=== PATIENT | male | born 1955 | race Caucasian/White ===

== ENCOUNTER 2024-03-26 21:47 | Inpatient (IN) | payer OTHER, SELFPAY ==
[2024-03-26] VITALS (8 sets, daily range): BP systolic 162–193; BP diastolic 91–109; BMI 33.7
--- NOTE | 2024-03-26 16:05 | ED.GENMED ---
History of Present Illness
<Keyla Dow PA-C - Last Filed: 03/26/24 23:15>
General
Chief Complaint: DVT/Possible Blood Clot
Source: patient
Exam Limitations: none
Time Seen by Provider: 03/26/24 15:54
History of Present Illness
History of Present Illness:
69yoM with a history of hypertension, hyperlipidemia, anemia, and obesity presenting with his for evaluation of left calf pain. Symptoms began 4 days ago. He initially thought he might have sprained his leg. He reports increasing pain in his
calf throughout the past few days with swelling. He went to urgent care today and was referred to the ED for concern for a DVT. Patient also reports feeling short of breath over the past week. He denies any chest pain or syncope. No prior
history of VTE. He had a 4 [address] ride a few weeks ago but otherwise denies recent travel.
Phy Exam
<Keyla Dow PA-C - Last Filed: 03/26/24 23:15>
General Physical Exam
General Presentation: well appearing
General age: appears stated age
General Skin: warm and dry
General Mental: alert
ENT Exam
ENT Exam: normocephalic
Cardiovascular Exam
Cardiovascular Exam: regular rate/rhythm and no murmur
Pulmonary Exam
Pulmonary Exam: lungs clear, no respiratory distress, no rales, no crackles and no rhonchi
[place] Coma Scale
Eye Opening: Spontaneous
Verbal Response: Oriented
Motor Response: Obeys Commands
GCS Total Score: 15
Musculoskeletal Exam
Musculoskeletal Exam: other (L lower leg is visibly larger than R leg with 2+ pitting edema)
Skin Exam
Skin Exam: normal color and warm/dry
Psychiatric Exam
Psychiatric Exam: normal mood/affect
Course
<Keyla Dow PA-C - Last Filed: 03/26/24 23:15>
Orders/Labs/Results
Orders:
Orders
03/26/24 15:37
US Periph Venous LOWER Ext LT Urgent
Comment:
Reason For Exam: pain in calf, behind knee
03/26/24 16:05
Electrocardiogram (*1) Urgent
Reason for Study: Shortness of Breath
EKG- Treatment ONCE
03/26/24 16:33
Complete Blood Count/With Diff Urgent
D-Dimer Urgent
PTT Urgent
Prothrombin Time Urgent
03/26/24 17:14
CT Chest PE Study Urgent
Comment:
Reason For Exam: SOB, DVT
03/26/24 17:27
Heparin 5,000 units IV NOW STA
03/26/24 17:28
Comprehensive Metabolic Panel Routine
03/26/24 17:29
NT-proBNP Routine
Comment: ADDON
Troponin I Routine
03/26/24 17:32
Heparin 7,700 units IV NOW STA
Nursing to Place Non Medication Order As Directed
Physician Order: PTT 6 hours after initial start of Heparin infusion
Above order entered?: Yes
03/26/24 17:45
Heparin 85157 Units/250 ml 25,000 units in 250 ml IV PER PROTOCOL
Weight to be used for heparin protocol in kilograms (kg):: 96
Protocol:: DVT/PE
PTT Goal Range to be used:: PTT 73 to 111 seconds
Order type:: Initial
INITIAL Infusion Dose (UNITS/KG/hr) & then follow protocol:: 18 units/kg/hr
Infusion Dose in UNITS/hr & then follow protocol (UNITS/hr):: 1,700
INFUSION RATE in mL/hr & then follow protocol (mL/hr):: 17
For DVT/PE algorithm, re-bolus for low PTT?: Yes
PTT less than or equal to 64 seconds:: Re-bolus 80 units/kg (max 10,000units). Increase by 400 units/hr
(+ 4mL/hr)
PTT 64.1 to 72.9 seconds:: Re-bolus 40 units/kg (max 5,000 units). Increase by 200 units/hr
(+ 2mL/hr)
PTT 73 to 111 seconds:: Target Range. No change in rate.
PTT 111.1 to 130.9 seconds:: Decrease rate by 200 units/hr (- 2 mL/hr)
PTT 131 to 199.9 seconds:: HOLD for 1 hr. Then decrease by 300 units/hr (- 3mL/hr)
PTT greater than or equal to 200 seconds:: HOLD for 2 hrs & Notify Provider. Then decrease by 400 units/hr
(- 4mL/hr)
Lab follow-up:: Each change, PTT q6h until 2 consecutive are therapeutic. Then
PTT daily.
03/26/24 18:00
Heparin 7,700 units IV PRN PRN
03/26/24 18:01
Heparin 3,800 units IV PRN PRN
03/26/24 19:46
Add On- LAB Urgent
Tests Added?: BNP
03/26/24 21:25
Admit/Transfer Patient As Directed
Co-Sign Provider:
Level of Care: Inpatient admission
Assign to:: IMU- Intermediate Care
Physician / Group: hospitalist
Diagnosis: Pulmonary embolus
Reason for Hospitalization: Pulmonary embolus
Expected length of stay greater than two midnights?: Yes
ELOS- Estimated Length of Stay in days: 2
I certify the patient meets the requirements for IP care: Yes
PRN Pain Medication Management As Directed
May give lesser potent ordered pain med per pt: Yes
preference::
Protocol:: Medication orders for pain may be administered in a
manner that supports deferring to patient preference
when the pt is:
- Requesting an ordered lesser potent pain medication.
Least to most potent pain medications are defined
as: acetaminophen < NSAID < tramadol < opioids
(morphine, oxycodone, hydromorphone).
- Requesting a lesser dose of the same medication IF
ORDERED.
- Requesting a less intrusive route of administration
if both routes are prescribed by the provider (PO <
IV).
03/26/24 21:26
Code Status As Directed
Resuscitation Status: Full Code
03/27/24 00:10
PTT Urgent
Abnormal Lab Results
03/26/24 03/26/24
16:33 17:28
Abs Immat Gran (auto) 0.1 H 10^3/uL
(0-0.05)
Immature Gran % 0.8 H %
(0-0.5)
Lymphocytes % 17.7 L %
(20.5-51.1)
Eosinophils % 6.1 H %
(0-6)
APTT 22.7 L Sec
(23.4-35.0)
D-Dimer 9.24 H ug/mlFEU
(0.00-0.50)
Sodium 134 L mmol/L
(135-145)
Glucose 101 H mg/dl
(70-99)
03/26/24 16:33
03/26/24 17:28
Vital Signs
Initial and Last Documented VS:
Initial Vital Signs
Temp Pulse Resp BP Pulse Ox
98.5 F 83 16 193/100 97
03/26/24 15:32 03/26/24 15:32 03/26/24 15:32 03/26/24 15:32 03/26/24 15:32
Last Documented Vital Signs
Temp Pulse Resp BP Pulse Ox
98.5 F 87 14 177/100 95
03/26/24 15:32 03/26/24 22:45 03/26/24 22:45 03/26/24 22:00 03/26/24 22:45
<Ej Crockett, DO - Last Filed: 03/26/24 19:54>
Orders/Labs/Results
Orders:
Orders
03/26/24 15:37
US Periph Venous LOWER Ext LT Urgent
Comment:
Reason For Exam: pain in calf, behind knee
03/26/24 16:05
Electrocardiogram (*1) Urgent
Reason for Study: Shortness of Breath
EKG- Treatment ONCE
03/26/24 16:33
Complete Blood Count/With Diff Urgent
D-Dimer Urgent
PTT Urgent
Prothrombin Time Urgent
03/26/24 17:14
CT Chest PE Study Urgent
Comment:
Reason For Exam: SOB, DVT
03/26/24 17:27
Heparin 5,000 units IV NOW STA
03/26/24 17:28
Comprehensive Metabolic Panel Routine
03/26/24 17:29
NT-proBNP Routine
Comment: ADDON
Troponin I Routine
03/26/24 17:32
Heparin 7,700 units IV NOW STA
Nursing to Place Non Medication Order As Directed
Physician Order: PTT 6 hours after initial start of Heparin infusion
Above order entered?: Yes
03/26/24 17:45
Heparin 92445 Units/250 ml 25,000 units in 250 ml IV PER PROTOCOL
Weight to be used for heparin protocol in kilograms (kg):: 96
Protocol:: DVT/PE
PTT Goal Range to be used:: PTT 73 to 111 seconds
Order type:: Initial
INITIAL Infusion Dose (UNITS/KG/hr) & then follow protocol:: 18 units/kg/hr
Infusion Dose in UNITS/hr & then follow protocol (UNITS/hr):: 1,700
INFUSION RATE in mL/hr & then follow protocol (mL/hr):: 17
For DVT/PE algorithm, re-bolus for low PTT?: Yes
PTT less than or equal to 64 seconds:: Re-bolus 80 units/kg (max 10,000units). Increase by 400 units/hr
(+ 4mL/hr)
PTT 64.1 to 72.9 seconds:: Re-bolus 40 units/kg (max 5,000 units). Increase by 200 units/hr
(+ 2mL/hr)
PTT 73 to 111 seconds:: Target Range. No change in rate.
PTT 111.1 to 130.9 seconds:: Decrease rate by 200 units/hr (- 2 mL/hr)
PTT 131 to 199.9 seconds:: HOLD for 1 hr. Then decrease by 300 units/hr (- 3mL/hr)
PTT greater than or equal to 200 seconds:: HOLD for 2 hrs & Notify Provider. Then decrease by 400 units/hr
(- 4mL/hr)
Lab follow-up:: Each change, PTT q6h until 2 consecutive are therapeutic. Then
PTT daily.
03/26/24 18:00
Heparin 7,700 units IV PRN PRN
03/26/24 18:01
Heparin 3,800 units IV PRN PRN
03/26/24 19:46
Add On- LAB Urgent
Tests Added?: BNP
03/26/24 21:25
Admit/Transfer Patient As Directed
Co-Sign Provider:
Level of Care: Inpatient admission
Assign to:: IMU- Intermediate Care
Physician / Group: hospitalist
Diagnosis: Pulmonary embolus
Reason for Hospitalization: Pulmonary embolus
Expected length of stay greater than two midnights?: Yes
ELOS- Estimated Length of Stay in days: 2
I certify the patient meets the requirements for IP care: Yes
PRN Pain Medication Management As Directed
May give lesser potent ordered pain med per pt: Yes
preference::
Protocol:: Medication orders for pain may be administered in a
manner that supports deferring to patient preference
when the pt is:
- Requesting an ordered lesser potent pain medication.
Least to most potent pain medications are defined
as: acetaminophen < NSAID < tramadol < opioids
(morphine, oxycodone, hydromorphone).
- Requesting a lesser dose of the same medication IF
ORDERED.
- Requesting a less intrusive route of administration
if both routes are prescribed by the provider (PO <
IV).
03/26/24 21:26
Code Status As Directed
Resuscitation Status: Full Code
03/27/24 00:10
PTT Urgent
Abnormal Lab Results
03/26/24 03/26/24
16:33 17:28
Abs Immat Gran (auto) 0.1 H 10^3/uL
(0-0.05)
Immature Gran % 0.8 H %
(0-0.5)
Lymphocytes % 17.7 L %
(20.5-51.1)
Eosinophils % 6.1 H %
(0-6)
APTT 22.7 L Sec
(23.4-35.0)
D-Dimer 9.24 H ug/mlFEU
(0.00-0.50)
Sodium 134 L mmol/L
(135-145)
Glucose 101 H mg/dl
(70-99)
03/26/24 16:33
03/26/24 17:28
Vital Signs
Initial and Last Documented VS:
Initial Vital Signs
Temp Pulse Resp BP Pulse Ox
98.5 F 83 16 193/100 97
03/26/24 15:32 03/26/24 15:32 03/26/24 15:32 03/26/24 15:32 03/26/24 15:32
Last Documented Vital Signs
Temp Pulse Resp BP Pulse Ox
98.5 F 87 14 177/100 95
03/26/24 15:32 03/26/24 22:45 03/26/24 22:45 03/26/24 22:00 03/26/24 22:45
<Keyla Dow PA-C - Last Filed: 03/26/24 23:15>
MDM/Problems Addressed
Differential Diagnosis Includes:
69yoM here with L calf pain x 4 days. Sent here from urgent care for concern for DVT. Also reports SOB. No chest pain or syncope. He is hypertensive with otherwise normal vitals. There is pitting edema on exam. Differential diagnosis includes but is
not limited to: DVT, Burkett's cyst, dependent edema, PE
Initial ED plan: Check cardiac labs, D-dimer, EKG, and venous duplex.
Final assessment: Venous duplex shows large DVT extending from proximal femoral vein to popliteal vein. High suspicion for PE. CTA chest ordered and patient empirically started on heparin gtt. CT shows saddle pulmonary embolus. No imaging evidence
of heart strain and troponin/BNP normal. Critical care and IR notified. No indication for intervention. Patient remains hemodynamically stable on room air. He was admitted for further management.
<Keyla Dow PA-C - Last Filed: 03/26/24 23:15>
*EKG
Interpreted by ED Provider?: Yes
EKG Intrepretation Date: 03/26/24
Heart Rate: 76
Rate: normal
Rhythm: sinus
Emily: normal axis
Interval: normal interval
QRS Pattern: normal QRS
Ischemia: no ischemia
<Ej Crockett DO - Last Filed: 03/26/24 19:54>
*Radiology
Radiology exam reviewed: radiology read reviewed
*Pulse Oximetry
Patient hypoxic: no
*Critical Care Note
Total Time (30-74mins, 75-104mins- exclusive of procedures): 31
<Ej Crockett DO - Last Filed: 03/26/24 19:54>
Update Note
Update Note:
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
ED Attending Note
<Keyla Dow PA-C - Last Filed: 03/26/24 23:15>
-
Portions of this chart may have been created with voice recognition software.� Occasional wrong word or��sound alike� substitutions may have occurred due to the inherent limitations of voice recognition software.
<Ej Crockett DO - Last Filed: 03/26/24 19:54>
ED Attending Note
Patient seen and examined by attending physician: Yes
I performed the substantive portion of visit, reviewed & personally made and approve the management plan that is documented in note by myself or SKYE.: Yes
ED Attending Note:
Seen with PA examined independently history of anemia several years ago had upper endoscopy showed gastritis, feels short of breath like when he was anemic has been taking some iron, had a 4-hour car trip to [place] a week or 2 ago here is a
swollen leg short of breath fairly extensive DVT, high index suspicion for PE started on unfractionated heparin will send for CT scan
Discharge Plan
Departure
Patient Disposition: Admit
Date of Disposition: 03/26/24
Time of Disposition: 19:58
Presentation/result/management discussed w/ accepting MD/DO: Hospitalist
Discharge Problem:
Acute saddle pulmonary embolism, Deep vein thrombosis (DVT) of proximal vein of left lower extremity
Interventions
Interventions:
*Risk Screen - Suicide Last Done: 03/26/24 15:32
*General Assessment Last Done: 03/26/24 15:32
*Neglect/Abuse Screening Last Done: 03/26/24 19:15
ED- Fall Risk Assessment Last Done: 03/26/24 19:15
*ED COVID-19 Vaccine History Last Done: 03/26/24 15:32
ED- Cardiac Assessment Last Done: 03/26/24 17:49
ED- Pulmonary Assessment Last Done: 03/26/24 17:49
ED-Peripheral Vascular Assessment Last Done: 03/26/24 17:49
ED-Skin Assessment Last Done: 03/26/24 17:49
[2024-03-26 16:46] LABS: % Basophils 0.5 % (0-2); % Eosinophils 6.1 % (0-6); % Immature Granulocytes 0.8 % (0-0.5); % Lymphocytes 17.7 % (20.5-51.1); % Monocytes 7.4 % (1.7-9.3); % Neutrophils 67.5 % (42.2-75.2); Absolute Eosinophils 0.5 10^3/uL (0-0.7); Absolute Immature Granulocytes 0.1 10^3/uL (0-0.05); Absolute Lymphocytes 1.3 10^3/uL (1.2-3.4); Absolute Monocytes 0.6 10^3/uL (0.1-0.6); Hematocrit 44.1 % (39.0-52.0); Hemoglobin 15.3 g/dL (13.0-18.0); Mean Corp Hgb Conc. 34.7 g/dL (33.0-37.0); Mean Corpuscular Hgb 30.8 pg (27.0-31.0); Mean Corpuscular Volume 88.9 fL (80.0-94.0); Mean Platelet Volume 10.4 fL (7.4-10.4); Nucleated Red Blood Cells % 0 % (-); Platelet Count 198 10^3/uL (130-400); Red Blood Cell Count 4.96 10^6/uL (4.70-6.10); Red Cell Dist. Width 13.5 % (11.5-14.5); White Blood Cell Count 7.4 10^3/uL (4.8-10.8)
[2024-03-26 17:42] LABS: INR 0.94; PT 12.9 Sec (11.4-14.6)
[2024-03-26 17:43] LABS: APTT 22.7 Sec (23.4-35.0)
[2024-03-26 17:58] LABS: ALT (SGPT) 19 U/L (0-50); AST (SGOT) 24 U/L (17-59); Albumin 4.8 g/dl (3.5-5.0); Alkaline Phosphatase 89 U/L (38-126); Blood Urea Nitrogen 17 mg/dl (9-20); Carbon Dioxide 25 mmol/L (22-30); Chloride 103 mmol/L (98-107); Estimated Creatinine Clearance 98 ml/min; Glucose 101 mg/dl (70-99); Potassium 4.3 mmol/L (3.5-5.1); Sodium 134 mmol/L (135-145); Total Bilirubin 0.8 mg/dl (0.2-1.3); Total Protein 7.6 g/dl (6.3-8.2); eGFR > 60.00
[2024-03-26 18:09] LABS: Troponin I < 0.012 ng/ml
[2024-03-26] MEDS: HEPARIN 25000 UNITS/250 ML IV (18:10)
[2024-03-26] MEDS: HEPARIN 7700 UNITS IV (18:13)
[2024-03-26 18:15] LABS: D-Dimer 9.24 ug/mlFEU (0.00-0.50)
[2024-03-26 21:00] LABS: NT-proBNP 108 pg/ml
--- NOTE | 2024-03-26 21:17 | HPS.HSE ---
Family Physician
-
Family Physician: Justine Collado
Chief Complaint
-
Shortness of breath and left leg swelling and pain
History of Present Illness
This is a 69-year-old with past medical history significant for hypertension, hyperlipidemia presenting to the emergency department with approximately 1 week history of leg swelling and shortness of breath.
Patient reported suddenly developed left leg pain on Friday. He reports the pain is localized to the calf and behind the knee. It was associated with some swelling. Soon afterward she started having some breathing difficulties. He reports
dyspnea on exertion with minimal activity such as putting on his clothes. He denies having any chest pain. Denies feeling lightheaded or dizzy. Patient ultimately saw urgent care who felt like he most likely had a DVT.
Patient himself reports that he had a 4-hour drive back and forth a few weeks ago. He denies any other prolonged immobilization. He had no recent surgeries. He had no recent hospitalization. Patient denies any recent injuries. He states he is
more sedentary due to his senior care. He denies any family history of bleeding or clotting disorders. Patient reports recent colonoscopy in 2018 with follow-up in 10 years. Is tobacco smoker but quit 35 years ago. He denies any diagnosis of BPH.
In the emergency department he was afebrile, blood pressure was 160/100 with a pulse of 85. His troponin was negative. BNP was negative. ECG was nonischemic. CBC was unremarkable. Electrolytes BUN/creatinine were all within the normal range.
He had a CT PE study which showed a saddle embolus. There was no or RV strain. Peripheral ultrasound is positive for DVT in the left leg.
Medical History
Past Medical History
Past Medical History: Reports GERD, HTN and Hypercholesterolemia
Additional Past Medical History:
h/o COCO
Past Surgical History: Reports Other
Social History
Tobacco: Former Smoker
Alcohol: Occasional
Drug: None
Personal:
Living: With Family
Employment: Retired
Family History
Family History: CAD
Allergies / Home Medications
Allergies reflects when Allergies were last updated in [employer].
Home Medications with original date entered in [employer]
Allergy/Medication List:
Allergies
Allergy/AdvReac Type Severity Reaction Status Date / Time
No Known Allergies Allergy Verified 03/26/24 15:35
Home Medications
aspirin 81 mg tablet,delayed release 81 mg PO DAILY 03/26/24
ferrous sulfate 325 mg (65 mg iron) tablet 325 mg PO DAILY 03/26/24
ibuprofen 200 mg tablet (Advil) 200 mg PO Q6HPRN PRN mild pain 03/26/24
latanoprost 0.005 % eye drops 1 drp BOTH EYES HS 03/26/24
rosuvastatin 40 mg tablet (Crestor) 40 mg PO DAILY 03/26/24
Review of Systems
-
History Source: Patient
Constitutional: Reports No Symptoms
EENT: Reports No Symptoms
Respiratory: Reports Trouble Breathing
Cardiac: Reports No Symptoms
Abdomen/GI: Reports No Symptoms
: Reports No Symptoms
Musculoskeletal: Reports No Symptoms
Skin: Reports No Symptoms
Neurological: Reports No Symptoms
Endocrine: Reports No Symptoms
Hematologic/Lymphatic: Reports No Symptoms
Psych: Reports No Symptoms
Physical Exam
Vital Signs
Vital Signs
Temp Pulse Resp BP Pulse Ox
98.5 F 85 18 163/109 94
03/26/24 15:32 03/26/24 19:00 03/26/24 19:15 03/26/24 19:00 03/26/24 19:00
Physical Exam
General: Well Developed, Well Nourished, Comfortable and Conversant
HEENT: NormoCephalic, Anicteric, Moist mucous membranes and Atraumatic
Respiratory: Clear
Cardiac: S1/S2 and Regular Rhythm
Breast: Deferred by me
GI: Soft, Non Tender, Non Distended and Normal Bowel Sounds
Rectal: Deferred by Provider
Genito-urinary: Deferred by me
Musculoskeletal: No Clubbing, No Cyanosis and No Edema
Skin: Warm
Neuro: AO x 3 and Nonfocal/grossly intact
Psych: Calm
Laboratory Results
-
03/26/24 16:33
03/26/24 17:28
Laboratory Results
PT 12.9 Sec (11.4-14.6) 03/26/24 16:33
INR 0.94 03/26/24 16:33
APTT Cancelled 03/26/24 17:32
Total Bilirubin 0.8 mg/dl (0.2-1.3) 03/26/24 17:28
AST 24 U/L (17-59) 03/26/24 17:28
ALT 19 U/L (0-50) 03/26/24 17:28
Alkaline Phosphatase 89 U/L (38-126) 03/26/24 17:28
Troponin I < 0.012 ng/ml 03/26/24 17:29
Data Reviewed
-
CT Scan: Report Reviewed by me
Ultrasound: Report Reviewed by me
Medical Tests (Nuc Med, Echo, EKG etc): Image Personally Visualized and interpreted
Lab Data: Labs Reviewed by me and Discussed with Physician
Old Records: Reviewed
Impression/Plan
-
IMPRESSION:
69 y.o with acute non-provoked DVT and PE with saddle embolus.
PLAN:
Venous thromboembolism with PE and DVT - No clear history of provoked emboli. No known family history of DVT/PE. Saddle embolus. Normal oxygen. HD stable. Normal troponin. No RV strain. No signs of severe compromise at this time.
- admit to IMU
- started on heparin gtt
- IR aware and notified, no indication for acute procedure
- intensivisit aware
- maintain heparin gtt for at least 24 hours
- transition per pulm
- outpatient hypercoagulable w/u recommended
- hold aspirin
- PPI prophylaxis
Code status - full code
[2024-03-27] VITALS (17 sets, daily range): BP systolic 141–171; BP diastolic 78–99; BMI 34.4; BMI 33.7
[2024-03-27 00:48] LABS: COVID-19 Antigen Negative (Negative)
[2024-03-27 00:49] LABS: APTT 73.6 Sec (23.4-35.0)
--- NOTE | 2024-03-27 00:52 | EDRN ---
pTT 73.6. As per protocol this is target range and requires no bolus or change in rate.
[2024-03-27 06:39] LABS: APTT 85.9 Sec (23.4-35.0)
[2024-03-27 06:59] LABS: ALT (SGPT) 19 U/L (0-50); AST (SGOT) 31 U/L (17-59); Albumin 4.5 g/dl (3.5-5.0); Alkaline Phosphatase 81 U/L (38-126); Blood Urea Nitrogen 15 mg/dl (9-20); Calcium 9.1 mg/dl (8.4-10.2); Carbon Dioxide 21 mmol/L (22-30); Chloride 107 mmol/L (98-107); Estimated Creatinine Clearance 98 ml/min; Glucose 106 mg/dl (70-99); HDL Cholesterol 48 mg/dl; LDL Cholesterol, Calculated 112 mg/dl; Potassium 4.4 mmol/L (3.5-5.1); Sodium 140 mmol/L (135-145); Total Bilirubin 0.9 mg/dl (0.2-1.3); Total Cholesterol 183 mg/dl (50-199); Total Protein 7.5 g/dl (6.3-8.2); Triglyceride 118 mg/dl (10-149); Very Low Density Lipoprotein 23 mg/dl (0-30); eGFR > 60.00
--- NOTE | 2024-03-27 07:00 | EDRN ---
the pts PTT came back at 0700 at 85.9, per Heparin gtt protocol there is no change to gtt so the pts Heparin gtt will remain at 1700units/hour, this was verified with another RN, next PTT 12:52
--- NOTE | 2024-03-27 08:00 | EDRN ---
the pt was received from previous shift mechanic nurse Felicia ESQUIVEL, the pt is resting in stretcher in the lowest position, side rails up x2, call mosher within reach, HOB elevated, no s/s of distress, no c/o chest pain, no c/o SOB, the pts is currently
at the pts bedside, the pt is on RA Sp02 98%, the pt was provided a menu and the pt was able to order his breakfast, Heparin gtt currently still running at 1700units/hour, the pts and the pts were update on the plan of care, will continue to
monitor the pt closely
[2024-03-27] MEDS: PROTONIX 40 MG PO (08:19)
[2024-03-27] MEDS: CRESTOR 40 MG PO (08:19)
[2024-03-27] MEDS: FEOSOL 325 MG PO (08:20)
[2024-03-27] MEDS: MIRALAX PO (08:20)
[2024-03-27] MEDS: HEPARIN 25000 UNITS/250 ML IV ×2 (08:30→22:51)
--- NOTE | 2024-03-27 10:36 | EDRN ---
the pts breakfast arrived and this RN brought the pt his breakfast and set him up in the stretcher with bedside table within reach
[2024-03-27 12:31] LABS: Glycohemoglobin (HgbA1c) 5.3 % (4.0-5.6)
--- NOTE | 2024-03-27 12:38 | EDRN ---
PTT drawn and sent
--- NOTE | 2024-03-27 12:43 | EDRN ---
the pt is resting in stretcher in the lowest position, side rails up x2, call mosher within reach, HOB elevated, no s/s of distress, VS WNL, no c/o chest pain, no c/o SOB, the pts is currently still at the pts bedside, the pt ordered his lunch,
the pt denies needing anything at this time, will continue to monitor the pt closely
[2024-03-27 12:55] LABS: APTT 58.1 Sec (23.4-35.0)
[2024-03-27] MEDS: HEPARIN 7700 UNITS IV (13:13)
--- NOTE | 2024-03-27 14:58 | EDRN ---
the pt ambulated to the bathroom and when the pt got back to the stretcher he pressed the call mosher and this RN entered the pts room, the pt stated that he had left sided chest pain that is non radiating, this RN reached out to Dr. Hawkins who
ordered an EKG on the pt
--- NOTE | 2024-03-27 15:02 | CON.PUL ---
Consultation
Consultation Request
Date/Time Consultation Requested: 03/27
Date/Time Consultation Performed: 03/27
Reason for Consultation: Pulmonary embolism
Medical History
-
History of Present Illness:
History obtained from the patient and at the bedside. Patient is a pleasant 69-year-old male with hypertension, GERD, anemia who presents with leg pain approximately 5 days ago with some swelling. Patient also admitted feeling short of breath
dressing, putting on his clothes. He had some mild lightheadedness on further questioning but denies any palpitations, chest tightness. Denies any syncope or falls. Of note he did have a 4-hour drive to [facility] few weeks ago. Denies
any trauma. He brought himself into [facility], upon arrival afebrile, pulse 85, breathing at 18, blood pressure 160s over 100s, 94%. Workup revealed extensive thromboembolic disease per CT angiogram. Patient was started on heparin
therapy. We are asked to help from pulmonary standpoint
.
PMH: hypertension, hyperlipidemia, GERD, iron deficiency anemia
Past Medical History
Past Medical History: None (See above)
Past Surgical History: None (See above)
Social History
Tobacco: Former Smoker ([id number], quit )
Alcohol: Occasional
Drug: None
Personal:
Living: With Family
Employment: Retired
Family History
Family History: Other (History of coronary disease. There is no history of thromboembolic disease)
Allergies / Home Medications
Allergies
Allergy/AdvReac Type Severity Reaction Status Date / Time
No Known Allergies Allergy Verified 03/26/24 15:35
Home Medications
�Medication �Instructions �Recorded �Confirmed �Last Taken �Type
aspirin 81 mg tablet,delayed 81 mg PO DAILY 03/26/24 03/26/24 Unknown History
release
ferrous sulfate 325 mg (65 mg 325 mg PO DAILY 03/26/24 03/26/24 Unknown History
iron) tablet
ibuprofen 200 mg tablet (Advil) 200 mg PO Q6HPRN PRN mild pain 03/26/24 03/26/24 03/26/24 History
latanoprost 0.005 % eye drops 1 drp BOTH EYES HS 03/26/24 03/26/24 Unknown History
rosuvastatin 40 mg tablet (Crestor) 40 mg PO DAILY 03/26/24 03/26/24 Unknown History
Review of Systems
Vitals / Labs / Diagnostic Testing
Vital Signs
Temp Pulse Resp BP Pulse Ox
97.6 F 70 18 150/85 93
03/27/24 12:00 03/27/24 14:45 03/27/24 14:45 03/27/24 14:00 03/27/24 14:45
Lab Data
03/26/24 16:33
03/27/24 06:16
Laboratory Results
03/26/24 03/26/24 03/27/24
16:33 17:32 00:16
PT 12.9
INR 0.94
APTT 22.7 L Cancelled 73.6 H
03/27/24 03/27/24
06:16 12:30
PT
INR
APTT 85.9 H 58.1 H
Diagnostic Testing:
Physical Exam
-
HEENT: Normocephalic, Anicteric and Other (Large neck)
Cardiovascular: S1/S2, Regular Rhythm, Murmur (n), Rub (n), Peripheral Edema (Trace edema left lower extremity) and Calf Tenderness (n)
Respiratory: Wheeze (n), Rales (n), Rhonchi (n) and Non-Labored Respirations
GI: Soft, Non Distended and Non Tender
Neurology: Awake, Alert, Oriented and No Motor Deficits
Skin: Good Color and Other (No skin rash)
General: Comfortable
Assessment
-
69-year-old male with history of hypertension, recent travel, presents with 5 days of increased left leg pain, subjective dyspnea and questionable lightheadedness. Found to have saddle embolus with extensive clot in the left leg. Heparin therapy
was started. We are asked to comment on pulmonary process
Acute bilateral PE, saddle embolus
Extensive left lower extremity DVT
Elevated D-dimer
No evidence of RV strain, cardiac biomarkers negative
COVID-negative
Subjective dyspnea x 5 days
Left leg swelling x 5 days
Hypertension/hyperlipidemia
GERD, large hiatal hernia per imaging
Suspected sleep apnea
Plan/recommendations
At this time, patient appears to be stable
Reviewed at length pathophysiology of thromboembolic disease
No indication for lytic therapy at this time
For now continue with heparin therapy
Would maintain bedrest for 24 hours
Discussed importance of age-appropriate cancer screening. Patient had colonoscopy 7 years ago unremarkable
Distant tobacco history noted
There does not appear to be any parenchymal abnormality per CT imaging
Reviewed with patient, at bedside
Reviewed with ED staff 03/25 1 in the PM and primary service
Will follow
--- NOTE | 2024-03-27 16:08 | CM ---
CM met with pt and spouse/Kimberlee bedside
They resides in a 2Sh with 1 small threshold
13 steps to 2nd floor
Pt is independent with his ADLs
Denies use of DMEs
Denies financial insecurities
PCP- Justine Collado
Rx- Lazaro/Fran
Discharge Disposition- anticipate home no needs
--- NOTE | 2024-03-27 17:19 | EDRN ---
the pt is resting in stretcher in the lowest position, side rails up x2, call mosher within reach, HOB elevated, no s/s of distress, VS WNL, no c/o chest pain currently, no c/o SOB, the pt is currently 93% on RA, the pt denies needing anything at this
time, the pt ordered dinner, will continue to monitor the pt closely
--- NOTE | 2024-03-27 17:32 | EDRN ---
this RN called verbal report to the receiving IMU nurse Pedro Luis ESQUIVEL, this RN also tubed nursing profile report to the receiving unit
[2024-03-27 20:27] LABS: APTT 192.5 Sec (23.4-35.0)
--- NOTE | 2024-03-27 21:53 | PTCARENOTE ---
Rec'd pt from ED, AAOx3, denies new complaints. Continues with mild LLE pain behind the knee. VSS, BP slightly elevated at 166/99, but consistent with pressures in ED. Pt educated on condition, oriented to room and call mosher system. Heparin gtt
hanging per MD orders. PTT critical high, protocol followed, REDDY Shields notified via TT. See worklist for titrations. This RN will continue to follow PTT per protocol. Pt encouraged to alert this RN with questions or concerns, denies either at this
time. Call mosher within reach. Spouse remains at bedside. Care ongoing.
[2024-03-27] MEDS: XALATAN OPHTHALMIC SOLUTION 1 DROP BOTH EYES (23:44)
[2024-03-28] VITALS (11 sets, daily range): BP systolic 124–155; BP diastolic 73–96
--- NOTE | 2024-03-28 00:36 | PTCARENOTE ---
SaO2 dropped several times, as low as 85% while sleeping. Denies diagnosis of sleep apnea. This RN placed 2L NC.
[2024-03-28 04:29] LABS: Hematocrit 40.5 % (39.0-52.0); Hemoglobin 13.6 g/dL (13.0-18.0); Mean Corp Hgb Conc. 33.6 g/dL (33.0-37.0); Mean Corpuscular Hgb 30.5 pg (27.0-31.0); Mean Corpuscular Volume 90.8 fL (80.0-94.0); Mean Platelet Volume 10.1 fL (7.4-10.4); Platelet Count 161 10^3/uL (130-400); Red Blood Cell Count 4.46 10^6/uL (4.70-6.10); Red Cell Dist. Width 13.2 % (11.5-14.5); White Blood Cell Count 6.4 10^3/uL (4.8-10.8)
--- NOTE | 2024-03-28 05:19 | PTCARENOTE ---
Pt removes O2 frequently to 'clean his nose', drops to 75%. Pt has to be reminded to replace O2 cannula often. Does recover to 90s once cannula replaced.
[2024-03-28] MEDS: PROTONIX 40 MG PO (08:10)
[2024-03-28] MEDS: FEOSOL 325 MG PO (08:10)
[2024-03-28] MEDS: CRESTOR 40 MG PO (08:10)
[2024-03-28] MEDS: MIRALAX 17 GRAMS PO (08:11)
--- NOTE | 2024-03-28 10:46 | CM ---
Chart reviewed and field nurse case manager met with patient and spouse at bedside, field nurse case manager received a consult to check on Eliquis pricing, cost of Eliquis is $145.61 per month, patient and spouse made aware of cost and one month free coupon provided to
patient, cardiology updated.
Plan; Home with spouse when stable, no needs.
--- NOTE | 2024-03-28 11:14 | W.PN.HOSP.TC ---
Today's Communication/Plan
-
Assessment / Plan
Assessment / Plan
Gen-AAOx3, NAD
HEENT-NC, AT, anicteric, clear oral mm
Neck-supple
CV-reg, no M, +S1/S2
Lungs-clear B/L
Abd-soft, NT, ND
Musculoskeletal-no edema, no deformity
Skin-warm and dry
Neuro-grossly non-focal
Psych-calm, cooperative
Mr. Rangel is a 69-year-old male with a medical history of hypertension and hyperlipidemia who presented with left leg swelling and shortness of breath progressively worsening over the past 1 week prior to arrival. CT angiography of his chest
showed saddle embolus. Ultrasound showed large left lower extremity DVT extending from the proximal left femoral vein through the posterior tibial vein. He has been started on anticoagulation with IV heparin drip and admitted for further
evaluation and management.
Acute saddle embolus:
-Suspect secondary to dislodged left lower extremity DVT following recent [place]
-Ultrasound showed large left lower extremity DVT extending from the proximal left femoral vein through the posterior tibial vein
-No evidence for significant right heart strain on CT angiography, echocardiogram pending for further evaluation
-Continue bedrest for now, anticoagulation with IV heparin drip
Hyperlipidemia:
-Continue home statin therapy
CODE STATUS: Full code
Anticipated Discharge: 24 - 48 hours
Subjective/Interval History
-
Date of Service: March 27, 2024
Patient was seen and examined at bedside in the ED this morning. Started on anticoagulation with IV heparin for saddle embolus. Breathing comfortably on low-flow supplemental oxygen.
Objective Data
-
Labs:
Laboratory Results
03/28/24 03/28/24
04:12 12:00
WBC 6.4
Hgb 13.6
Hct 40.5
Plt Count 161
APTT 131.0 H Pending
Vital Signs:
Vital Signs
Temp Pulse Resp BP Pulse Ox
97.8 F 61 15 124/75 95
03/28/24 11:00 03/28/24 04:00 03/28/24 04:00 03/28/24 04:00 03/28/24 04:00
I&O
03/27/24 03/28/24 03/29/24
06:59 06:59 06:59
Intake Total 240 / 240
Output Total 500 / 500
Balance -260 / -260
Review of Systems
-
History Source: Patient
All other systems: Reviewed and negative
Physical Exam
-
General: No Apparent Distress
--- NOTE | 2024-03-28 11:23 | W.PN.HOSP.TC ---
Today's Communication/Plan
-
Assessment / Plan
Assessment / Plan
Gen-AAOx3, NAD
HEENT-NC, AT, anicteric, clear oral mm
Neck-supple
CV-reg, no M, +S1/S2
Lungs-clear B/L
Abd-soft, NT, ND
Musculoskeletal-no edema, no deformity
Skin-warm and dry
Neuro-grossly non-focal
Psych-calm, cooperative
Mr. Rangel is a 69-year-old male with a medical history of hypertension and hyperlipidemia who presented with left leg swelling and shortness of breath progressively worsening over the past 1 week prior to arrival. CT angiography of his chest
showed saddle embolus. Ultrasound showed large left lower extremity DVT extending from the proximal left femoral vein through the posterior tibial vein. He has been started on anticoagulation with IV heparin drip and admitted for further
evaluation and management.
Acute saddle embolus:
-Suspect secondary to dislodged left lower extremity DVT following recent long drive across the state
-Ultrasound showed large left lower extremity DVT extending from the proximal left femoral vein through the posterior tibial vein
-No evidence for significant right heart strain on CT angiography, echocardiogram pending for further evaluation
-Continue bedrest for now, anticoagulation with IV heparin drip
-Plan to transition to oral anticoagulation with Eliquis in the next 24 hours, appreciate case management assistance for pricing, patient agrees to continue with Eliquis after discharge
-Appreciate input from pulmonology
Hyperlipidemia:
-Continue home statin therapy
CODE STATUS: Full code
Anticipated Discharge: 24 - 48 hours
Subjective/Interval History
-
Date of Service: March 28, 2024
Patient was seen and examined at bedside this morning. He remains on anticoagulation with IV heparin drip. Reports feeling mild dizziness and shortness of breath. Had some left-sided chest discomfort last night after eating dinner, EKG at the
time showed no acute abnormalities. Chest discomfort now resolved.
Objective Data
-
Labs:
Laboratory Results
03/28/24 03/28/24
04:12 12:00
WBC 6.4
Hgb 13.6
Hct 40.5
Plt Count 161
APTT 131.0 H Pending
Vital Signs:
Vital Signs
Temp Pulse Resp BP Pulse Ox
97.8 F 61 15 124/75 95
03/28/24 11:00 03/28/24 04:00 03/28/24 04:00 03/28/24 04:00 03/28/24 04:00
I&O
03/27/24 03/28/24 03/29/24
06:59 06:59 06:59
Intake Total 240 / 240
Output Total 500 / 500
Balance -260 / -260
Review of Systems
-
History Source: Patient
All other systems: Reviewed and negative
Respiratory: Reports Trouble Breathing (Mild shortness of breath)
Neuro: Reports Dizzy (Mild dizziness)
Physical Exam
-
General: No Apparent Distress
[2024-03-28 13:06] LABS: APTT 48.9 Sec (23.4-35.0)
[2024-03-28] MEDS: HEPARIN 7700 UNITS IV (13:57)
--- NOTE | 2024-03-28 14:57 | W.PN.PUL3 ---
Today's Communication / Plan
-
Continue heparin therapy
Given extent of clot burden, saddle embolus, will need to increase activity carefully
Consider ambulation tomorrow with physical therapy
Continue heparin for now
Do not anticipate discharge till Friday at the earliest
Echocardiogram pending
Assessment
-
69-year-old male with history of hypertension, recent travel, presents with 5 days of increased left leg pain, subjective dyspnea and questionable lightheadedness. Found to have saddle embolus with extensive clot in the left leg. Heparin therapy
was started. We are asked to comment on pulmonary process
Acute bilateral PE, saddle embolus
Extensive left lower extremity DVT
Elevated D-dimer
No evidence of RV strain, cardiac biomarkers negative
COVID-negative
Subjective dyspnea x 5 days
Left leg swelling x 5 days
Hypertension/hyperlipidemia
GERD, large hiatal hernia per imaging
Suspected sleep apnea
Plan/recommendations
At this time, patient appears to be stable
Reviewed at length pathophysiology of thromboembolic disease
No indication for lytic therapy at this time
For now continue with heparin therapy
Hope to ambulate in the a.m.
Consider transition to oral therapy in the a.m.
Given clot burden, saddle embolus, do not anticipate discharge until Friday/Friday
Echocardiogram pending
Discussed importance of age-appropriate cancer screening. Patient had colonoscopy 7 years ago unremarkable
Distant tobacco history noted
There does not appear to be any parenchymal abnormality per CT imaging
Reviewed with patient, at bedside, all questions answeredReviewed with ED staff 03/25 1 in the PM and primary service
Subjective Data
-
Date of Service:
Date of Service: March 28, 2024
Subjective:
Patient is without complaints. He has mild cough but otherwise denies any chest pain, chest tightness, lightheadedness, dizziness, nausea. at bedside. Patient examined earlier today. Late entry
Objective Data
Data Reviewed
Vital Signs / I&O / Oxygen:
Vital Signs
Temp Pulse Resp BP Pulse Ox
97.8 F 70 24 151/88 93
03/28/24 11:00 03/28/24 12:00 03/28/24 12:00 03/28/24 10:00 03/28/24 12:21
Intake and Output
03/27/24 03/28/24 03/29/24
06:59 06:59 06:59
Intake Total 240 / 240
Output Total 500 / 500
Balance -260 / -260
SaO2 93
Physical Exam
General: Comfortable
HEENT: Normocephalic and Anicteric
Cardiovascular: S1-S2, Regular Rhythm, Murmur (n) and Rub (n)
Respiratory: Wheeze (n), Crackles (n), Rhonchi (n) and Non-Labored Respirations
GI: Soft, Non Distended and Non Tender
Neurology: Awake, Alert and No Motor Deficits
Skin: Cyanosis (n), Jaundice (n) and Rash (n)
Labs/Micro/Reports
Lab Data
03/28/24 04:12
03/27/24 06:16
Laboratory Results
03/27/24 03/28/24 03/28/24
19:33 04:12 12:21
APTT 192.5 H* 131.0 H 48.9 H
[2024-03-28] MEDS: HEPARIN 25000 UNITS/250 ML IV (16:38)
[2024-03-28] MEDS: XALATAN OPHTHALMIC SOLUTION 1 DROP BOTH EYES (19:56)
[2024-03-28 20:23] LABS: APTT 110.8 Sec (23.4-35.0)
[2024-03-29] VITALS (12 sets, daily range): BP systolic 128–164; BP diastolic 60–91
--- NOTE | 2024-03-29 00:25 | PTCARENOTE ---
assumed care of patient. pt is AAOx3, able to make needs known. heparin gtt infusing. pt with no complaints of pain. pt does admit to SOB on exertion at times but says it is getting better. pt is on RA 93%. able to urinal or x1 assist to BR. at
bedside. care ongoing.
[2024-03-29 03:26] LABS: APTT 140.5 Sec (23.4-35.0)
[2024-03-29] MEDS: HEPARIN 25000 UNITS/250 ML IV ×2 (05:46→18:22)
--- NOTE | 2024-03-29 08:09 | PTCARENOTE ---
On walking rounds pt sleeping . Heparin gtt at 16 ml an hour.
[2024-03-29] MEDS: MIRALAX 17 GRAMS PO (08:56)
[2024-03-29] MEDS: FEOSOL 325 MG PO (08:56)
[2024-03-29] MEDS: PROTONIX 40 MG PO (08:56)
[2024-03-29] MEDS: CRESTOR 40 MG PO (08:56)
--- NOTE | 2024-03-29 09:17 | W.PN.PUL3 ---
Today's Communication / Plan
-
Continue with systemic anticoagulation with heparin drip
Would transition to NOAC by tomorrow, preferably with Eliquis
Case management consult to assure Eliquis is affordable
Up out of bed as tolerated
Pain control
Maintain SpO2 >90-94%
Outpatient pulmonary office follow-up will be arranged
Dispo planning � patient can likely be discharged in the next 24 hours, at least from a pulmonary perspective
Pulmonary service will continue to follow along
Assessment
-
69-year-old male with history of hypertension, recent travel, presents with 5 days of increased left leg pain, subjective dyspnea and questionable lightheadedness. Found to have saddle embolus with extensive clot in the left leg. Heparin therapy
was started. We are asked to comment on pulmonary process
Acute bilateral PE, saddle embolus
Extensive left lower extremity DVT
Elevated D-dimer
No evidence of RV strain, cardiac biomarkers negative
COVID-negative
Subjective dyspnea x 5 days
Left leg swelling x 5 days
Hypertension/hyperlipidemia
GERD, large hiatal hernia per imaging
Suspected sleep apnea
Plan/recommendations
At this time, patient appears to be stable
Reviewed at length pathophysiology of thromboembolic disease
No indication for lytic therapy at this time
For now continue with heparin therapy with eventual transition to NOAC; would recommend transitioning tomorrow to Eliquis
Case management consult to assess affordability of Eliquis
Transthoracic echocardiogram performed today showing normal RV size and function with no evidence of pulmonary hypertension, with LVEF 50-55% with mild concentric LVH and normal diastolic function; no need to repeat echo for the purposes of this
acute PE
Dr. Lester discussed importance of age-appropriate cancer screening. Patient had colonoscopy 7 years ago unremarkable
Distant tobacco history noted
There does not appear to be any parenchymal abnormality per CT imaging
Reviewed with patient and at bedside - and all questions answered
Dispo planning, believe patient can be discharged in the next 24 hours.
Pulmonary service will continue to follow along.
Total time spent today was 36 minutes for this encounter. Time includes reviewing laboratory test/imaging results, reviewing pertinent medical records, obtaining and reviewing medical history, performing an appropriate exam, ordering medications,
tests and procedures. Time also includes documentation of this encounter, coordinating patient care and communicating with other healthcare professionals. Total time does not include separately billed tests performed on this date of service.
Subjective Data
-
Date of Service:
Date of Service: March 29, 2024
Chief Complaint: Pulmonary Follow Up
Subjective:
Patient seen and evaluated today at bedside. Patient's , Gely, at bedside and all questions were answered. Patient currently on room air saturating 96% with heart rate 65 and BP 128/60. Patient denies chest pain, SOB, fevers or chills.
Review of Systems
General: Other (Negative unless mentioned above)
Objective Data
Data Reviewed
Vital Signs / I&O / Oxygen:
Vital Signs
Temp Pulse Resp BP Pulse Ox
98.3 F 63 16 134/81 91
03/29/24 04:24 03/29/24 06:00 03/29/24 06:00 03/29/24 06:00 03/29/24 06:00
Intake and Output
03/28/24 03/29/24 03/30/24
06:59 06:59 06:59
Intake Total 240 / 240
Output Total 1125 / 1125
Balance -885 / -885
SaO2 91
Physical Exam
General: Respiratory Distress (n) and Comfortable
HEENT: Normocephalic and Anicteric
Cardiovascular: S1-S2, Murmur (n), Rub (n) and Peripheral Edema (+1 left lower extremity pitting edema)
Respiratory: Clear, Wheeze (n), Crackles (n), Rhonchi (n) and Non-Labored Respirations
GI: Soft, Non Distended, Non Tender and Normal Bowel Sounds
Neurology: Awake, Alert and Tremors (n)
Skin: Warm, Dry, Cyanosis (n), Jaundice (n) and Rash (n)
Labs/Micro/Reports
Lab Data
03/28/24 04:12
03/27/24 06:16
Laboratory Results
03/28/24 03/28/24 03/29/24
12:21 20:03 02:49
APTT 48.9 H 110.8 H 140.5 H
[2024-03-29 10:56] LABS: APTT 65.5 Sec (23.4-35.0)
--- NOTE | 2024-03-29 13:44 | W.PN.HOSP.TC ---
Today's Communication/Plan
-
Continue IV heparin drip
Transition to DOAC possibly tomorrow morning
Follow-up TTE
Trend CBC
Assessment / Plan
Assessment / Plan
#Provoked Acute Saddle Embolus
-Suspect secondary to dislodged left lower extremity DVT following recent long drive across the state
-Ultrasound showed large left lower extremity DVT extending from the proximal left femoral vein through the posterior tibial vein
-No evidence for significant right heart strain on CT angiography, echocardiogram pending for further evaluation of right ventricle
-Was started on IV heparin drip for anticoagulation; remains on bedrest due to significant LLE clot burden
-Planning to transition IV heparin to Eliquis, likely can be transitioned tomorrow morning
-Currently on room air and hemodynamically stable without mechanical or chemical support
Plan
-Plan to transition to IV heparin tomorrow morning at earliest
-Will plan to have him ambulate tomorrow once LLE clots stabilized further
-Follow-up echocardiogram for signs of RV strain or pulmonary HTN
-No indication for hypercoagulable workup at this time
-Monitor respiratory status and vitals
-Outpatient age-related cancer screening
#Hyperlipidemia
-No known history of ASCVD; Home medications include high intensity statin
#Hypertension
-No known history of hypertensive systemic disease
-Home medications include losartan�HCTZ
-Blood pressure currently
#H/O COCO
-Remains on oral iron supplement
-Last colonoscopy reportedly normal, 7 years ago
DVT prophylaxis: IV heparin drip
Diet: Cholesterol-lowering
CODE STATUS: Full code
Anticipated Discharge: 24 - 48 hours
Subjective/Interval History
-
Date of Service: March 29, 2024
Seen and examined at the bedside. No acute events reported overnight. AFVSS on room air today
Remains on heparin drip. CBC stable.
He states he feels generally well and denies any new complaints today. Denies chest pain or dyspnea. Has some shortness of breath with ambulation to the bathroom
Objective Data
-
Labs:
Laboratory Results
03/29/24 03/29/24 03/29/24
02:49 10:34 18:00
APTT 140.5 H 65.5 H Pending
Vital Signs:
Vital Signs
Temp Pulse Resp BP Pulse Ox
97.7 F 66 19 145/91 92
03/29/24 11:05 03/29/24 08:00 03/29/24 08:00 03/29/24 08:00 03/29/24 08:00
I&O
03/28/24 03/29/24 03/30/24
06:59 06:59 06:59
Intake Total 240 / 240
Output Total 1125 / 1125 850 / 850
Balance -885 / -885 -850 / -850
Review of Systems
-
History Source: Patient
All other systems: Reviewed and negative
Physical Exam
-
General: Well Developed, No Apparent Distress, Comfortable and Obese
HEENT: Normocephalic, Atraumatic and Moist Mucous Membranes
Respiratory: Clear to Auscultation and Non Labored Respirations
Cardiac: Regular Rhythm and S1/S2; Negative Murmur, Rub, JVD or Gallop
GI: Soft, Nontender, Nondistended and Normal Bowel Sounds
Musculoskeletal: No Clubbing, No Cyanosis and Other (Edema of LLE >RLE)
Skin: Warm, Dry and Normal Turgor; Negative Rash
Neuro: AO x 3 and Nonfocal/Grossly Intact
Psych: Calm
Data Reviewed
-
Labs: Labs Reviewed by me and Discussed with Patient
[2024-03-29 18:21] LABS: APTT 76.2 Sec (23.4-35.0)
[2024-03-29] MEDS: XALATAN OPHTHALMIC SOLUTION 1 DROP BOTH EYES (22:36)
[2024-03-30] VITALS: BP 139/80
--- NOTE | 2024-03-30 00:17 | PTCARENOTE ---
assumed care of patient. pt is AAOx3, able to make needs known. slight tenderness to left calf but tolerable. heparin gtt infusing. non-productive cough. at bedside. care ongoing.
[2024-03-30 00:52] LABS: APTT 83.8 Sec (23.4-35.0)
[2024-03-30 02:00] VITALS: BP 128/84
--- NOTE | 2024-03-30 02:33 | PTCARENOTE ---
in the middle of the night, pt's oxygen dropped to 84% while sleeping. pt placed on 2L, up to 95%.
[2024-03-30 04:00] VITALS: BP 100/58
[2024-03-30 06:00] VITALS: BP 129/84
[2024-03-30] MEDS: HEPARIN 25000 UNITS/250 ML IV (06:00)
[2024-03-30 06:40] LABS: % Basophils 0.5 % (0-2); % Eosinophils 7.1 % (0-6); % Immature Granulocytes 0.7 % (0-0.5); % Lymphocytes 24.7 % (20.5-51.1); % Monocytes 9.2 % (1.7-9.3); % Neutrophils 57.8 % (42.2-75.2); Absolute Eosinophils 0.4 10^3/uL (0-0.7); Absolute Lymphocytes 1.5 10^3/uL (1.2-3.4); Absolute Monocytes 0.5 10^3/uL (0.1-0.6); Absolute Neutrophils 3.4 10^3/uL (1.4-6.5); Hematocrit 39.5 % (39.0-52.0); Hemoglobin 13.7 g/dL (13.0-18.0); Mean Corp Hgb Conc. 34.7 g/dL (33.0-37.0); Mean Corpuscular Hgb 31.2 pg (27.0-31.0); Mean Platelet Volume 10.7 fL (7.4-10.4); Nucleated Red Blood Cells % 0 % (-); Platelet Count 161 10^3/uL (130-400); Red Blood Cell Count 4.39 10^6/uL (4.70-6.10); Red Cell Dist. Width 13.2 % (11.5-14.5); White Blood Cell Count 5.9 10^3/uL (4.8-10.8)
[2024-03-30 06:47] LABS: APTT 107.1 Sec (23.4-35.0)
[2024-03-30 07:05] LABS: Blood Urea Nitrogen 17 mg/dl (9-20); Calcium 8.9 mg/dl (8.4-10.2); Carbon Dioxide 23 mmol/L (22-30); Chloride 105 mmol/L (98-107); Estimated Creatinine Clearance 86 ml/min; Glucose 97 mg/dl (70-99); Potassium 4.5 mmol/L (3.5-5.1); Sodium 137 mmol/L (135-145); eGFR > 60.00
[2024-03-30 08:00] VITALS: BP 137/81
--- NOTE | 2024-03-30 08:10 | W.PN.PUL3 ---
Today's Communication / Plan
-
NOAC with Eliquis
Case management consult to assure Eliquis is affordable
Up out of bed as tolerated
Pain control
Maintain SpO2 >90-94%
Outpatient pulmonary office follow-up will be arranged
Patient being prepared for discharge home today. No additional recommendations at this time. Pulmonary service will now sign off. Please reconsult if there are any additional questions/concerns, or if patient's respiratory status deteriorates.
Assessment
-
69-year-old male with history of hypertension, recent travel, presents with 5 days of increased left leg pain, subjective dyspnea and questionable lightheadedness. Found to have saddle embolus with extensive clot in the left leg. Heparin therapy
was started. We are asked to comment on pulmonary process
Acute bilateral PE, saddle embolus
Extensive left lower extremity DVT
Elevated D-dimer
No evidence of RV strain, cardiac biomarkers negative
COVID-negative
Subjective dyspnea x 5 days
Left leg swelling x 5 days
Hypertension/hyperlipidemia
GERD, large hiatal hernia per imaging
Suspected sleep apnea
Plan/recommendations
At this time, patient appears to be stable
Reviewed at length pathophysiology of thromboembolic disease
No indication for lytic therapy at this time
Transitioned to NOAC this morning with Eliquis 10 mg BID
Case management consult to assess affordability of Eliquis
Transthoracic echocardiogram performed yesterday showing normal RV size and function with no evidence of pulmonary hypertension, with LVEF 50-55% with mild concentric LVH and normal diastolic function; no need to repeat echo for the purposes of this
acute PE
Dr. Lester discussed importance of age-appropriate cancer screening. Patient had colonoscopy 7 years ago unremarkable
Distant tobacco history noted
There does not appear to be any parenchymal abnormality per CT imaging
Reviewed with patient and at bedside - and all questions answered
Patient being prepared for discharge home today. No additional recommendations at this time. Pulmonary service will now sign off. Thank you for allowing us to be involved in the care of this patient. Please reconsult if there are any additional
questions/concerns, or if patient's respiratory status deteriorates.
Total time spent today was 27 minutes for this encounter. Time includes reviewing laboratory test/imaging results, reviewing pertinent medical records, obtaining and reviewing medical history, performing an appropriate exam, ordering medications,
tests and procedures. Time also includes documentation of this encounter, coordinating patient care and communicating with other healthcare professionals. Total time does not include separately billed tests performed on this date of service.
Subjective Data
-
Date of Service:
Date of Service: March 30, 2024
Chief Complaint: Pulmonary Follow Up
Subjective:
Patient seen and evaluated today at bedside. No acute events reported from overnight. On room air this morning saturating 96%. Denies chest pain, [place], fevers or chills. He did spike a fever yesterday afternoon to 100.6 �F.
Review of Systems
General: Other (Negative unless mentioned above)
Objective Data
Data Reviewed
Vital Signs / I&O / Oxygen:
Vital Signs
Temp Pulse Resp BP Pulse Ox
97.7 F 65 17 129/84 96
03/30/24 03:00 03/30/24 06:00 03/30/24 06:00 03/30/24 06:00 03/30/24 06:00
Intake and Output
03/29/24 03/30/24 03/31/24
06:59 06:59 06:59
Intake Total 240 / 240
Output Total 1125 / 1125 2049
Balance -885 / -885 -2049 / -2049
SaO2 96
Physical Exam
General: Respiratory Distress (n) and Comfortable
HEENT: Normocephalic and Anicteric
Cardiovascular: S1-S2, Murmur (n), Rub (n) and Peripheral Edema (+1 left lower extremity pitting edema)
Respiratory: Clear, Wheeze (n), Crackles (n), Rhonchi (n) and Non-Labored Respirations
GI: Soft, Non Distended, Non Tender and Normal Bowel Sounds
Neurology: Awake, Alert and Tremors (n)
Skin: Warm, Dry, Cyanosis (n), Jaundice (n) and Rash (n)
Labs/Micro/Reports
Lab Data
03/30/24 06:19
03/30/24 06:19
Laboratory Results
03/29/24 03/29/24 03/30/24
10:34 17:49 00:22
APTT 65.5 H 76.2 H 83.8 H
03/30/24
06:19
APTT 107.1 H
[2024-03-30] MEDS: ELIQUIS 10 MG PO (08:22)
[2024-03-30] MEDS: PROTONIX 40 MG PO (08:23)
[2024-03-30] MEDS: CRESTOR 40 MG PO (08:23)
[2024-03-30] MEDS: MIRALAX 17 GRAMS PO (08:23)
[2024-03-30] MEDS: FEOSOL 325 MG PO (08:23)
--- NOTE | 2024-03-30 10:30 | PTCARENOTE ---
Pt walked [place] on room air on monitor POX at 96% no cp no sob . Dr Bryson AWARE
--- NOTE | 2024-03-30 11:34 | W.PN.HOSP.TC ---
Today's Communication/Plan
-
Transition to Eliquis
Discharge
OP pulmonology and PCP follow-up
Assessment / Plan
Assessment / Plan
#Provoked Acute Saddle Embolus
-Suspect secondary to dislodged left lower extremity DVT following [place]
-Ultrasound showed large left lower extremity DVT extending from the proximal left femoral vein through the posterior tibial vein
-No evidence for significant right heart strain on CT angiography, echocardiogram pending for further evaluation of right ventricle
-Was started on IV heparin drip for anticoagulation; remains on bedrest due to significant LLE clot burden
-Planning to transition IV heparin to Eliquis, likely can be transitioned tomorrow morning
-Currently on room air and hemodynamically stable without mechanical or chemical support
-Echocardiogram was fairly unremarkable no hypoxemia with ambulation on room air
Plan
-Transition to Eliquis 10 mg twice daily to complete 7 days
-On 04/03/2024 start 5 mg Eliquis twice daily indefinitely
-Outpatient age-related cancer screening
#Hyperlipidemia
-No known history of ASCVD; Home medications include high intensity statin
#Hypertension
-No known history of hypertensive systemic disease
-Home medications include losartan�HCTZ
-Blood pressure currently
#H/O COCO
-Remains on oral iron supplement
-Last colonoscopy reportedly normal, 7 years ago
DVT prophylaxis: IV heparin drip
Diet: Cholesterol-lowering
CODE STATUS: Full code
Anticipated Discharge: Today
Subjective/Interval History
-
Date of Service: March 30, 2024
Seen and examined at the bedside. No acute events reported overnight. AFVSS this morning on room air
Blood counts remained stable. Patient ambulated the hallway with SpO2 96% on room air
States he feels well and denies any new complaints. Ready to go home
Objective Data
-
Labs:
Laboratory Results
03/30/24 03/30/24
00:22 06:19
WBC 5.9
Hgb 13.7
Hct 39.5
Plt Count 161
APTT 83.8 H 107.1 H
Sodium 137
Potassium 4.5
Chloride 105
Carbon Dioxide 23
BUN 17
Creatinine 0.9
Glucose 97
Calcium 8.9
Vital Signs:
Vital Signs
Temp Pulse Resp BP Pulse Ox
97.7 F 65 17 129/84 93
03/30/24 07:05 03/30/24 06:00 03/30/24 06:00 03/30/24 06:00 03/30/24 08:00
I&O
03/29/24 03/30/24 03/31/24
06:59 06:59 06:59
Intake Total 240 / 240
Output Total 1125 / 1125 2049
Balance -885 / -885 -2049
Review of Systems
-
History Source: Patient
All other systems: Reviewed and negative
Physical Exam
-
General: Well Developed, No Apparent Distress, Comfortable and Obese
HEENT: Normocephalic, Atraumatic and Moist Mucous Membranes
Respiratory: Clear to Auscultation and Non Labored Respirations
Cardiac: Regular Rhythm and S1/S2; Negative Murmur, Rub or Gallop
GI: Soft, Nontender, Nondistended and Normal Bowel Sounds
Musculoskeletal: No Clubbing, No Cyanosis, No Edema and Normal Gait & Station
Skin: Warm, Dry and Normal Turgor; Negative Rash
Neuro: AO x 3 and Nonfocal/Grossly Intact
Psych: Calm
Data Reviewed
-
Labs: Labs Reviewed by me and Discussed with Patient
[2024-03-30 11:55] VITALS: BP 140/94
--- NOTE | 2024-03-30 12:31 | CM ---
Patient with Dx Pulmonary Embolus, DVT LLE. Room air. Nurse did O2 walking test today- no need for O2.
Met with patient and ; the patient says he feels ready for d/c home today. IMM completed. He says he has the [employer] [facility] Coupon issued to him by on 03/28. His will provide transport home today.
No CM d/c needs identified.
Plan home today.
--- NOTE | 2024-03-30 12:38 | PTCARENOTE ---
Pt DC with instructions and med list no questions
--- NOTE | 2024-03-30 15:00 | W.DCSUMMARY ---
Discharge Summary
Discharge Data
Date of Admission: 03/26/24
Date of Discharge: 03/30/24
-
Pending Results: No
Hospital Course
69-year-old male with GERD, HTN, HLD, COCO, tobacco use that presented to the hospital with shortness of breath and left lower extremity swelling after a long ride in the car x [address]. [address] PE protocol demonstrated acute saddle embolism,
further imaging demonstrated LLE DVT provoked in the context of his recent long drive. He was started on IV heparin drip and maintained on bedrest for initial part of hospitalization. Evaluated by pulmonology who provided outpatient follow-up and
guidance on anticoagulation. Transitioned him from IV heparin drip to Eliquis 10 mg twice daily to complete 7 days prior to transitioning to 5 mg twice daily indefinitely. Advised him to maintain exercise restriction for 1 week after discharge.
Advised him to follow-up with [facility] [facility] and family doctor within 1-2 weeks of discharge from the hospital. Patient should have age-related cancer screening studies as indicated
Discharge Plan
-
Patient Disposition: Home (Routine Discharge)
Discharge Diagnosis/Procedures: Acute saddle pulmonary embolism
Provoked DVT of left leg
Condition: Fair
Diet: No restrictions
Activity: As tolerated
Additional Activity: No exercise for 1 week after discharge
Driving Restrictions: No driving for 24 hours
Bathing Restrictions: None
Blood Work: None
Others Tests: None
Activity Restrictions/Additional Instructions:
After discharge from the hospital follow-up with family physician. Should be seen in office within 1 to 2 weeks of discharge from the hospital. You should discuss age-appropriate cancer screening to ensure you are up-to-date on these studies
(colorectal cancer screening, lung cancer screening, prostate cancer screening)
You should also follow-up in the office with pulmonology referral, provided below. Contact their office to schedule
Instructions: Pulmonary embolism (blood clot in the lung)
Referrals:
Ryan Lester MD [Active] - (3 months, PFT)
Justine Collado MD [Family Provider] -
Additional Discharge Medication Instructions: Take Eliquis 10 mg once in the morning and once in the evening for 3 more days after discharge (last day 04/02/2024)
Starting 04/03/2024, Take Eliquis 5 mg once in the morning and once in the evening indefinitely
Start pantoprazole 40 mg daily
Stop taking ibuprofen for mild pain and use Tylenol instead. Ibuprofen can increase your risk for bleeding and you are now on an aspirin and a blood thinner
Prescriptions:
New
Eliquis 5 mg Tablet
10 mg PO BID 3 Days Qty: 12 0RF
Eliquis 5 mg tablet
5 mg PO BID 30 Days Qty: 60 0RF
Rx Instructions:
Start on 04/03/24
pantoprazole 40 mg Tablet,Delayed Release (Dr/Ec)
40 mg PO DAILY 30 Days Qty: 30 0RF
Continued
latanoprost 0.005 % Drops
1 drp BOTH EYES HS
aspirin 81 mg Tablet,Delayed Release (Dr/Ec)
81 mg PO DAILY
ferrous sulfate 325 mg (65 mg iron) Tablet
325 mg PO DAILY
rosuvastatin [Crestor] 40 mg Tablet
40 mg PO DAILY
losartan-hydrochlorothiazide 50-12.5 mg Tablet
1 tab PO DAILY
Discontinued
ibuprofen [Advil] 200 mg Tablet
200 mg PO Q6HPRN PRN (Reason: mild pain)
Discharge Orders:
Discharge Patient (As Directed); Ordered 03/30/24
Ordered By: Zechariah Peng
Discharge Date and Time
Discharge Date/Time: 03/30/24 12:30
Print Language: SETSWANA
== END 2024-03-30 12:30 | disposition home or self-care (01) | DRG 299 ==
LOC: IMU 21:47
PROVIDERS: Internal Medicine; Physician Assistant; ADMITTING PHYSICIAN Internal Medicine; ATTENDING PHYSICIAN Internal Medicine; CONSULT PHYSICIAN Internal Medicine Critical Care Medicine; EMERGENCY PHYSICIAN Emergency Medicine; FAMILY PHYSICIAN Family Medicine
DX: I82.442 Acute embolism and thrombosis of left tibial vein (principal); I26.92 Saddle embolus of pulmonary artery without acute cor pulmonale; I82.412 Acute embolism and thrombosis of left femoral vein; E78.00 Pure hypercholesterolemia, unspecified; K21.9 Gastro-esophageal reflux disease without esophagitis; I10 Essential (primary) hypertension; G47.30 Sleep apnea, unspecified; D50.9 Iron deficiency anemia, unspecified; E66.9 Obesity, unspecified; Z87.891 Personal history of nicotine dependence; Z79.82 Long term (current) use of aspirin; Z79.899 Other long term (current) drug therapy; Z68.33 Body mass index [BMI] 33.0-33.9, adult; Z11.52 Encounter for screening for COVID-19
CPT/HCPCS: 71275; 80048; 80053; 80061; 83036; 83880; 84484; 85025; 85027; 85379; 85610; 85730; 86850; 86900; 86901; 87811; 93005; 93306; 93971; 96365; 96366; 99291; Q9967